=== PATIENT | male | born 1980 | race African-American/Black ===

== ENCOUNTER 2020-01-29 01:15 | Emergency (ER) | payer OTHER ==
[2020-01-29] MEDS ORDERED: Adacel (T-DAP) 0.5 ML SYRINGE ONE (01:33)
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
== END 2020-01-29 02:43 ==
LOC: NAV ERS 01:15
DX: S00.83XA Contusion of other part of head, initial encounter (principal); S00.03XA Contusion of scalp, initial encounter; I10 Essential (primary) hypertension; Z79.899 Other long term (current) drug therapy; Y04.2XXA Assault by strike against or bumped into by another person, initial encounter
CPT/HCPCS: 70450; 70486; 72125; 90471; 90715

== ENCOUNTER 2022-09-18 22:59 | Emergency (ER) | payer OTHER ==
[2022-09-18] MEDS ORDERED: Lidocaine 1% (PF) 30 ML VIAL ONE (23:07)
[2022-09-18] MEDS ORDERED: Boostrix 0.5 ML (Tdap) VIAL (>/=7 yrs of age) ONE (23:19)
[2022-09-18] MEDS ORDERED: Ibuprofen 800 MG TAB ONE (23:30)
== END 2022-09-18 23:49 ==
LOC: NAV ERS 22:59
DX: S05.31XA Ocular laceration without prolapse or loss of intraocular tissue, right eye, initial encounter (principal); Z23 Encounter for immunization; I10 Essential (primary) hypertension; K21.9 Gastro-esophageal reflux disease without esophagitis; Z79.899 Other long term (current) drug therapy; Y04.0XXA Assault by unarmed brawl or fight, initial encounter
CPT/HCPCS: 12011; 90471; 90715; J2001